=== PATIENT | female | born 1960 | race Caucasian/White ===

== ENCOUNTER 2016-09-08 10:43 | Day surgery (SDC) | payer OTHER ==
[2016-09-08] VITALS (19 sets, daily range): BP systolic 101–140; BP diastolic 57–69; PULSE 65–83; RESP 12–16; TEMP 96.9–98; O2SAT 92–100; Ht 162.6 cm; Wt 75.2 kg
[~2016-09-08] VITALS: Ht 162.6 cm; Wt 75.2 kg
[~2016-09-08 10:43] MED LIST: CEFAZOLIN 1 GRAM INJECTION IV ONE; CHOL100018 PO; CYCL-375 PO; ESTR0.9T2 PO; FAMO20TA32 PO; LIDOCAINE 1% (10mg/ml) 2ml SDV INJ ONE; LR 1,000 ML IV PRN; OMEG500C7 PO; OMEP20TA11 PO; PHENAZOPYRIDINE 95 MG TABLET PO ONE; POLY17PO6 PO; PREMARIN PO; [UNRECOGNIZED DRUG - OTHER]
[2016-09-08] MEDS ORDERED: BUPIVACAINE 0.25% (2.5mg/ml) INJ 30ml SDV ONE (11:18)
[2016-09-08] MEDS ORDERED: BUPIVACAINE 0.25%/EPI 1:200,000 30ml SDV ONE (11:18)
[2016-09-08] MEDS ORDERED: ESTR1.25 PO (11:20)
[2016-09-08] MEDS ORDERED: LIDOCAINE JELLY 2% 20ml UROJET MM ONE (11:22)
[2016-09-08] MEDS ORDERED: BIOT10004 PO (11:24)
--- NOTE | 2016-09-08 11:27 | ANESPREOP ---
Anesthesia Record Date and Time DATE: 09/08/16 TIME: 11:26 Proposed Surgical Procedure ROBOTIC LAPAROSCOPIC SACROCOLPOPEXY NPO since: mn Allergies: Coded Allergies: latex (Verified Allergy, Intermediate, RASH, 09/08/16) rash on hands from gloves Sulfa (Sulfonamide Antibiotics) (Verified Allergy, Unknown, YEAST, 09/08/16 ) Ht/Wt/BMI Height: 5 ' 4.00 " Weight: 73.000 kg BMI: 27.6 kg/m2 Medications Inpatient Medications Current Medications Medications (Trade) Dose Ordered Sig/Anna Start Time Stop Time Status Last Admin Dose Admin Lactated Ringer's (Lactated Ringers) 1,000 ml @ 50 mls/hr Q20H PRN 09/08/16 07:00 Biotin (Biotin) 1,000 Mcg Tab.chew, 1 TAB PO DAILY, (Reported) Last Taken: on 09/06/161999 Cholecalciferol (Vitamin D3) 1,000 Unit Tablet , 1,000 UNIT PO QID, (Reported) Last Taken: on 09/06/16 Cyclobenzaprine HCl (Cyclobenzaprine HCl) 10 Mg Tablet, 1 TAB PO HS, (Reported) Last Taken: on 09/07/16 2200 Estrogens,Conjugated (Premarin) 1.25 Mg Tablet , 0.5 TAB PO DAILY, (Reported) Last Taken: on 09/06/16 0400 [place]-3 Fatty Acids (Fish Oil) 500 Mg Capsule, 500 MG PO BID, (Reported) Last Taken: on 09/06/161999 Polyethylene Glycol 3350 (Miralax) 17 Gm Powd.pack, 17 G PO DAILY, (Reported) Take 17 Grams (1 capful), by mouth, once a day. Last Taken: on 09/08/16 0800 [Vibyrd] , DAILY, (Reported) Currently on Beta Delisa: No Medical/Surgical History Anesthesia PMH: Reports: Other (history of ulcer), Reflux (HX OF PER PAST ADMIT ) Smoking Status: Never smoker Use Chewing Tobacco?: No Second Hand Exposure: No Substance Use Type: does not use Alcohol Intake: none Past Surgical History Orthopedic Surgeries: No Abdominal Surgeries: No Genitourinary Surgeries: No Cardiac Surgeries: No Endocrine Surgeries: No Reproductive Surgeries: Yes - C SECTION; HYSTERECTOMY Neurological Surgeries: No Ear Surgeries: No Nose Surgeries: No Throat Surgeries: Yes - TONSILLECTOMY Other Surgeries: Yes - EGD; COLONOSCOPY,WISDOM TEETH PER H&P Anesthesia Adverse Reactions: FOUND none Family Hx of Anesthesia Advers: none Hx of Motion Sickness: No Physical Exam Respiratory: Bilat breath sounds equal, Lungs clear Cardiovascular: FOUND Regular rate, rhythm Airway Assessment Mallampati Score: II TMD: 3 Fingerbreadths Neck Extension: Good Overall Assessment: No Airway Concerns ASA: 2 Plan Anesthesia Plan: GETA Discussion Discussed risks including blindness and peripheral nerve injury/options/ alternatives of anesthesia and questions answered. Patient consents. Nursing pain assessment noted. Attestation Statement Prior to the delivery of any anesthetic medication, I examined the patient, developed the plan, obtained the patient's consent and discussed the risk and benefits of the procedure with the patient/guardian. MARTIN WHITFIELD CRNA Sep 08, 2016 11:27
[2016-09-08 11:28] LABS: BASOPHILS # (AUTO) 0.1 T/MM3 (0-0.2); BASOPHILS % (AUTO) 1.1 % (0-2); EOSINOPHILS # (AUTO) 0.2 T/MM3 (0-0.5); EOSINOPHILS % (AUTO) 3.1 % (0-4); HCT - HEMATOCRIT 40.4 % (36-46); HGB - HEMOGLOBIN 13.3 GM/DL (12-16); IMMATURE GRANULOCYTE # (AUTO) 0.01 T/MM3 (0.00-0.03); IMMATURE GRANULOCYTE % (AUTO) 0.2 % (0.0-0.5); LYMPHOCYTES # (AUTO) 2.8 T/MM3 (1-4.8); MEAN CORPUSCULAR HGB 29.9 UUG (26-34); MEAN CORPUSCULAR HGB CONC(MCHC 32.9 GM/DL (31-37); MEAN CORPUSCULAR VOLUME 90.8 UM3 (80-100); MEAN PLATELET VOLUME 9.1 UM3 (9.4-12.4); MONOCYTES # (AUTO) 0.4 T/MM3 (0-0.8); MONOCYTES % (AUTO) 6.8 % (0-9.0); NEUTROPHILS #(AUTO)-ABSOLUTE 2.7 T/MM3 (1.8-7.7); NEUTROPHILS % (AUTO) 42.8 % (33-66); RED BLOOD COUNT 4.45 M/MM3 (4.00-5.20); WBC - WHITE BLOOD COUNT 6.2 T/MM3 (4.5-11.0)
[2016-09-08 11:36] LABS: ANION GAP 11 MEQ/L (5-15); BUN/CREATININE RATIO 16 RATIO (6-26); CALCIUM 9.2 MG/DL (8.4-10.2); CHLORIDE 106 MEQ/L (98-107); CO2 - CARBON DIOXIDE 28 MEQ/L (22-30); CREATININE 0.8 MG/DL (0.7-1.2); GLOMERULAR FILTRATION RATE 74; GLUCOSE 95 MG/DL (65-110); POTASSIUM 3.9 MEQ/L (3.6-5); SODIUM 145 MEQ/L (134-144)
[2016-09-08] MEDS ORDERED: SALINE FLUSH 10ml SYRINGE ONE ×2 (12:01→14:45)
[2016-09-08] MEDS ORDERED: VECURONIUM 10mg/10ml INJECTION IV ONE (12:01)
[2016-09-08] MEDS ORDERED: PROPOFOL 200mg 20 ML IV ONE (12:01)
[2016-09-08] MEDS ORDERED: FENTANYL 250mcg/5ml INJECTION ONE ×2 (12:01→12:08)
[2016-09-08] MEDS ORDERED: LIDOCAINE (2%) 100 MG/5 ML PF SYRINGE IV ONE (12:01)
[2016-09-08] MEDS ORDERED: DEXAMETHASONE 4mg/ml - 1ml INJECTION ONE (12:06)
[2016-09-08] MEDS ORDERED: LACRI-LUBE EYE OINT 3.5 G TUBE ONE (12:10)
[2016-09-08] MEDS ORDERED: SUGAMMADEX 200 MG/2 ML INJECTION IV ONE (14:57)
[2016-09-08] MEDS ORDERED: HYDROMORPHONE 2mg/ml INJECTION ONE (14:58)
[2016-09-08] MEDS ORDERED: ONDANSETRON 4mg/2ml INJECTION ONE (14:58)
[2016-09-08] MEDS ORDERED: MORPHINE SULFATE 4 MG SYRINGE IV PRN (16:00)
[2016-09-08] MEDS ORDERED: IBUPROFEN 200 MG TABLET PO PRN (16:00)
[2016-09-08] MEDS ORDERED: METOCLOPRAMIDE 10mg/2ml INJECTION IV PRN (16:00)
[2016-09-08] MEDS ORDERED: KETOROLAC 15mg/ml INJECTION IV PRN (16:00)
[2016-09-08] MEDS ORDERED: ONDANSETRON 4mg/2ml INJECTION IV PRN (16:00)
--- NOTE | 2016-09-08 16:01 | GYNOPNOTE1 ---
INTAKE COUNSELOR Postoperative Note Date of Operation: 09/08/16 Preoperative Dx Comments POST- HYST VAG VAULT PROLAPSE Postoperative Diagnosis: Same as Preoperative Procedure: Posterior Colporrhaphy, Cystoscopy, Robotic Sacrocolpopexy Surgeon: Jeffry Griffin Anesthesia Provider: Aravind Barbosa CRNA Anesthesia Type: general Estimated Blood Loss: 75 JEFFRY GRIFFIN MD Sep 08, 2016 16:01
--- NOTE | 2016-09-08 16:06 | ANESPO ---
Post-Op Note Date 09/08/16 Time: 16:06 Status Pt Participated in Evaluation: Pt participated in person Vital Signs Date Time Temp Pulse Resp B/P Pulse Ox O2 Delivery O2 Flow Rate FiO2 09/08/16 15:40 96.9 73 12 108/60 98 Room Air Respiratory Function: Airway patent, Regular respirations Cardiovascular Function: Regular pulse Mental Status: Alert/oriented Pain Level Intensity: 0 Hydration: Taking po fluids Complications during Recovery None apparent Follow-Up Instructions Instructions Per Surgeon MARISOL SANTIAGO CRNA Sep 08, 2016 16:06
--- NOTE | 2016-09-08 16:19 | NUR ---
ARRIVAL PT TO ROOM 113 PER CART. PT TRANSFERRED SELF FROM CART TO BED. AT TIME OF TRANSFER, DILLON TUBING TO BAG BECAME DISCONNECTED. NEW BAG PLACED. DILLON PATENT AND DRAINING. PT DENIES PAIN, NAUSEA, OR SOA AT THIS TIME. VS TO BE ASSESSED. PT ORIENTED TO ROOM AND BED. BED ALARM ON. CALL LIGHT WITHIN REACH. WILL CONTINUE TO MONITOR.
[2016-09-08] MEDS: LR 1,000 ML IV SCH ×2 (17:07→23:52)
[2016-09-08] MEDS: HYDROCODONE/APAP 5 mg/325 mg TABLET PO PRN ×2 (17:28→23:36)
--- NOTE | 2016-09-08 17:28 | NUR ---
PAIN AFTER ROUNDING, PT STATED THAT PAIN IN ABD WAS A 5/10. PRN NORCO 5 GIVEN DOCUMENTED. PT GIVEN JELLO. DENIES NAUSEA OR SOA. BED ALARM ON. CALL LIGHT WITHIN REACH. WILL CONTINUE TO MONITOR.
[2016-09-09 04:23] VITALS: BP 106/58; PULSE 75; RESP 14; TEMP 96.8; O2SAT 97
--- NOTE | 2016-09-09 07:08 | NUR ---
SHIFT SUMMARY PT ALERT AND ORIENTED X3, VITAL SIGNS ARE STABLE ON ROOM AIR. DENIES C/P,N/V AND SOA. PT AMBULATED TWICE ON THIS SHIFT. PT HAS REQUIRED ONE DOSE OF PO PRN PAIN MEDICATION. WILL CONTINUE TO MONITOR.
[2016-09-09 07:12] VITALS: BP 108/54; PULSE 73; RESP 16; TEMP 97.6; O2SAT 99
--- NOTE | 2016-09-09 07:50 | NUR ---
VOIDING TRIAL VOIDING TRIAL PERFORMED PER DR. GRACE'S ORDERS AT THIS TIME. PT IMMEDIATELY ATTEMPTED TO VOID AFTER INSTILLATION OF 300CC OF STERILE NS AND CATHETER DC. PT VOIDED 300CC AT THIS TIME IN THE BATHROOM. PT PERFORMED A BATH AND SHAINA CARE AT THIS TIME. PT ASSISTED TO CHAIR AFTER VOIDING TRIAL FOR BREAKFAST. NO REPORTS OF DISCOMFORT OR PAIN DURING THIS VOIDING TRIAL. WILL CONTINUE TO MONITOR URINARY OUTPUT THROUGHOUT SHIFT. PT ENCOURAGED TO WALK HALLS AFTER BREAKFAST. WILL CONTINUE TO MONITOR CLOSELY.
[2016-09-09] MEDS: LR 1,000 ML IV SCH (07:52)
[2016-09-09 07:56] VITALS: PULSE 73; RESP 16
[2016-09-09] MEDS: HYDROCODONE/APAP 5 mg/325 mg TABLET PO PRN (08:05)
[2016-09-09] MEDS ORDERED: HYDR-4246 PO (08:46)
[2016-09-09] MEDS ORDERED: IBUP-1724 PO (08:46)
[2016-09-09] MEDS ORDERED: ENOXAPARIN 40 MG/0.4 ML INJECTION SQ SCH (09:00)
--- NOTE | 2016-09-09 09:44 | OPNOTEF ---
DATE OF SURGERY 09/08/2016 PREOPERATIVE DIAGNOSES 1. Symptomatic stage III posthysterectomy vaginal prolapse. 2. Old obstetrical laceration with posterior scar. POSTOPERATIVE DIAGNOSES 1. Symptomatic stage III posthysterectomy vaginal prolapse. 2. Old obstetrical laceration with posterior scar. PROCEDURES PERFORMED 1. Robotic laparoscopic sacrocolpopexy. 2. Posterior colporrhaphy. 3. Cystourethroscopy. SURGEON Eitan Griffin MD ESTIMATED BLOOD LOSS 75 mL. ANESTHESIA General. IMPLANTS Coloplast Restorelle Y mesh. INDICATIONS A 56-year-old woman with history of MILLY/BSO in 2004 for nonprolapse indications presents for protrusion of the vagina outside the hymenal ring significantly. The intraoperative examination was more notable for prolapse than on the office evaluation with predominantly an apical anterior prolapse with the apex produced more than 5 cm beyond the hymenal ring. She had actually overall good vaginal wall thickness, and there was well-rugated epithelium. At the conclusion of the procedure, the bladder and urethra were normal and there were bilateral urine jets produced. A transrectal exam was completed as needed during the posterior repair and at the conclusion of the operation. DESCRIPTION OF PROCEDURE General anesthesia was administered, and the patient was prepped and draped in the low lithotomy position in the Jorden stirrups with sequential compression devices and appropriate padding as is typical for da Nagi-assisted operative laparoscopic pelvic surgery. She received prophylactic antibiotics. A preoperative checklist was completed. The examination under anesthesia was completed. The findings noted. Marking Allis clamps were placed on the vaginal wall anteriorly and posteriorly for future identified for graft attachment. The vagina was stented by the court assistant with a large EEA sizer or a Anatoliy retractor for dissection and graft application. A transurethral Prasad was placed to continuous drainage. The abdomen was approached sterilely. An intraumbilical incision was made. A Veress needle did not pass easily. We passed the Veress needle through a stab incision at the palmar point in the left upper quadrant and had appropriate pressures at which point CO2 could be insufflated. The umbilical 12-mm port was then placed and secured. The video laparoscope was introduced. The two lateral 8-mm da Nagi ports were placed 10 to 12 cm off of midline just below the level of the umbilicus in the usual manner under direct vision. The court assistant port was placed in the left upper quadrant as was a 12-mm AirSeal port, which was then attached to the CO2 AirSeal system. The bowel was cleared from the pelvis with atraumatic forceps. A systematic survey was taken of the pelvis and upper abdomen noting a few filmy adhesions of the sigmoid colon over the top of the bladder. The sigmoid colon was autoretracted by adhesions to the left upper quadrant, and these were not freed. Sacropromontory was easily visualized. The da Nagi was side docked. The console was approached using monopolar merritt and fenestrated bipolar forceps. The retroperitoneal dissection was then made to open the peritoneum over the sacrum noting the position of the right common iliac artery and crossing of the right ureter as well as identifying the edge of the left common iliac vein. The anterior longitudinal ligament was cleared below the iliac vein and the middle sacral vessels were skeletonized and coagulated to clear the lower L5-S1 disc space anterior longitudinal ligament for future graft attachment. The peritoneum adjacent to the sigmoid colon on the right side was then opened down to the pelvic floor to develop the rectovaginal plane and then develop the vesicovaginal plane anteriorly. The Coloplast Restorelle Y mesh was then attached with the anterior arm measuring 4.5 x 6 cm, the posterior arm 4.5 x 8 cm. The posterior side was attached first with nine attachment points of interrupted 2-0 PDS. The anterior side was attached with eight 2-0 PDS sutures as well. The vagina was then stented up to stage the tail over the sacrum. This was taken off of tension slightly and secured to the lower L5-S1 anterior longitudinal ligament with two sutures of CV-0 [place]-Fabricio, and the excess mesh was trimmed. The graft was retroperitonealized with a running 2-0 V-Loc suture. This field was irrigated and suctioned, and it was found to be hemostatic. The da Nagi was then undocked and the patient taken out of Trendelenburg for cystoscopy. Cystourethroscopy was completed using a 21-Macanese sheath and 70-degree telescope with water as a distention medium noting bilateral urine jets and no bladder trauma or urethral trauma with systematic inspection. The Prasad catheter was replaced. We then returned sterilely to the abdominal wall to close the port sites at the skin after removing all instruments and expressing the gas. Then, 4-0 Monocryl was used on the skin as well as Dermabond. We returned to the transvaginal approach in the high lithotomy position to correct the posterior obstetrical scarring and cleft that remained from old laceration and performed a distal colporrhaphy by using Allis clamps infiltrated with Marcaine epinephrine, incising the old midline scar with Metzenbaum scissors, and then undermining the vaginal wall and dividing it posteriorly to mobilize the rectum away from the vaginal wall and then mobilize the rectovaginal septal connective tissue as well laterally. The rectal wall was plicated with a couple of 2-0 Vicryl sutures. The rectovaginal septal connective tissue was plicated with several interrupted 2-0 Vicryl sutures. Excess vaginal wall was trimmed, and the vagina was closed with interrupted [id number] 2-0 Vicryl sutures and 3-0 Vicryl sutures down to over the peroneal body which was also reinforced with interrupted Anatoliy sutures of 2-0 Vicryl. Good support to the vagina was noted. A transrectal exam was negative. Good hemostasis was found, and the patient was awakened and taken to the PACU in good condition. JULIO
--- NOTE | 2016-09-09 11:05 | NUR ---
CM CM IN TO VISIT WITH PT. SHE IS ALERT AND ORIENTED. SHE PLANS TO DC HOME. SHE DENIES DC NEEDS. LACE SCORE IS 1. SHE IS GIVEN CM CONTACT INFORMATION. Addendum: 09/09/16 at 1105 by VERONICA BO RN Amended: Links added.
[2016-09-09 11:15] VITALS: BP 103/60; PULSE 80; RESP 16; TEMP 96.6; O2SAT 100
== END 2016-09-09 11:50 | disposition home or self-care (01) ==
LOC: SCU 10:43 → SRG 10:44 → SCU 09-09 11:50
PROVIDERS: ATTEND Obstetrics & Gynecology Gynecology
DX: N99.3 Prolapse of vaginal vault after hysterectomy (principal); Z88.2 Allergy status to sulfonamides; Z88.6 Allergy status to analgesic agent; Z91.040 Latex allergy status; Z90.710 Acquired absence of both cervix and uterus
CPT/HCPCS: 36415; 57425; 80048; 85025; C1763; J0690; J1100; J1170; J1650; J2405; J2704; J3010; J7120; S2900

== ENCOUNTER 2016-09-12 02:25 | Inpatient (IN) | payer OTHER ==
[~2016-09-12] VITALS: Ht 162.6 cm; Wt 74.5 kg
[~2016-09-12 02:25] MED LIST changes: +BIOT10004 PO; -CEFAZOLIN 1 GRAM INJECTION IV ONE; -ESTR0.9T2 PO; +ESTR1.25 PO; -FAMO20TA32 PO; +HYDR-4246 PO; +IBUP-1724 PO; -LIDOCAINE 1% (10mg/ml) 2ml SDV INJ ONE; -LR 1,000 ML IV PRN; -OMEP20TA11 PO; -PHENAZOPYRIDINE 95 MG TABLET PO ONE; -PREMARIN PO; -[UNRECOGNIZED DRUG - OTHER]
--- OUTSIDE RECORDS SUMMARY | 2016-09-12 02:29 | XMS REPORT | Continuity of Care Document ---
Author Author [facility] Organization [facility] Address Unknown Phone Unavailable Support Name Relationship Address Phone DANIEL ANDERSON MD Caregiver [address] [place] [address] Unavailable JEFFRY GRACE MD Caregiver [address] [address] Unavailable JAYDEN ATKINS Next Of Kin [address] [phone] Insurance Providers Guarantor Makeda Atkins Address [address] [place] [address] CP Email [email or web address] Payer Benefit [employer] Policy Number [id number] Subscriber's Name WilbertJayden Relationship 01 Spouse Group Number [id number] Advance Directives Directive Response Recorded Date/Time Ordered Resuscitation Status Full Code, unverified 09/07/16 12:29pm Resuscitation Documents on File No 09/08/16 11:00am DPOA for Healthcare Only Yes 09/08/16 11:00am Living Will Yes 09/08/16 11:00am Problems No problem information available. Medications Current Home Medications Medication Dose Units Route Directions Days Qty Instructions Start Date Biotin 1,000 Mcg Tab.chew 1 Tab Oral Daily 09/08/16 Cholecalciferol (Vitamin D3) 1,000 Unit Tablet 1,000 Unit Oral Four Times Daily 01/23/12 Cyclobenzaprine Hcl 10 Mg Tablet 1 Tab Oral Bedtime 09/07/16 Estrogens,Conjugated (Premarin) 1.25 Mg Tablet 0.5 Tab Oral Daily 09/08/16 Hydrocodone/Acetaminophen ([place] 5-325 Tablet) 5-325 Tablet 1-2 Tab Oral Every 4 Hours as needed for Pain 30 Tablet 09/09/16 Ibuprofen 200 Mg Tablet 600 Mg Oral Every 6 Hours as needed for Pain 40 Tablet 09/09/16 [place]-3 Fatty Acids (Fish Oil) 500 Mg Capsule 500 Mg Oral Twice A Day 01/23/12 Polyethylene Glycol 3350 (Miralax) 17 Gm Powd.pack 17 G Oral Daily Take 17 Grams (1 capful), by mouth, once a day. 09/07/16 Past Home Medications Medication Directions Ordered Status Multivitamins (Multi-Day Vitamin) 1 Tab Tablet, 1 Tab Oral Daily 11/16/10 Discontinued Social History Social History Problem Response Recorded Date/Time Onset Date Status Reason for Hospitalization Laparscopic Colpopexy 09/09/2016 10:49am Not Applicable Not Applicable Chewing Tobacco Status No 05/22/2012 9:39am Not Applicable Not Applicable Hx Substance Use No 05/22/2012 9:39am Not Applicable Not Applicable Hx Alcohol Use Y 2-3X MO-PER PAST ADMIT 09/08/2016 11:20am Not Applicable Not Applicable Has the pt used tobacco in the last 12 months No 09/08/2016 11:20am Not Applicable Not Applicable Query Response Start Date Stop Date Smoking Status Never smoker Hospital Discharge Instructions Instructions: Care Instructions: I was in the hospital because (patient own words): tying up my bladder Discharge Diet: Regular Discharge Activity: as instructed Follow Up Appointments: as scheduled, sooner prn Pending Lab / Results: No Pending Lab Expected Signs/Symptoms: as reviewed Notify Physician If: any concerns Temp > 100.5 During Business Hours:: Please call the physician's office at [phone] After Business Hours:: Please call [phone] and have the clarifier operator page the physician. Pain Management/Treatment: RXs provided Pain Scale Utilized to Educate Patient: 0-10 Pain Scale Wound/Incision Care: as reviewed Condition at time of discharge: Good Plan of Care Discharge Date 09/09/16 11:50am Instructions/Education Provided PANTERA Grace Postoperative Instructions Cystoscopy (DC) Prescriptions See Medication Section Functional Status Query Response Date Recorded Mobility Status Ambulatory September 08, 2016 4:28pm Assistive Devices None September 08, 2016 4:28pm Activity Limitations Fatigue Pain September 08, 2016 4:28pm Feeding Ability Independent September 08, 2016 4:28pm Toileting Ability Independent September 08, 2016 4:28pm Grooming Ability Independent September 08, 2016 4:28pm Dressing Ability Independent September 08, 2016 4:28pm Driving Ability Independent September 08, 2016 4:28pm Housework Ability Independent September 08, 2016 4:28pm Meal Preparation Ability Independent September 08, 2016 4:28pm Stair Climbing Ability Independent September 08, 2016 4:28pm Ability to complete ADL's impeded by No change September 08, 2016 4:28pm Cognitive/Perceptual Impairments Impaired vision September 08, 2016 4:28pm Visual Assistive Devices Glasses September 08, 2016 4:28pm Allergies, Adverse Reactions, Alerts Allergen Type Severity Reaction Status Last Updated Sulfa (Sulfonamide Antibiotics) Allergy Unknown YEAST Active 09/08/16 Latex Allergy Intermediate RASH Active 09/08/16 Immunizations Query Response on File Recorded Date/Time Hx Influenza Vaccination N fall 201509/08/16 11:20am Hx Pneumococcal Vaccination No 09/08/16 11:20am Hx Tetanus, Diptheria, Pertussis N NEEDS TO BE UPDATED 10/22/11 7:25pm Hx Influenza Vaccination N fall 201509/08/16 11:20am Hx Tetanus, Diptheria, Pertussis N NEEDS TO BE UPDATED 10/22/11 7:25pm Influenza Vaccine Hx fall 201509/09/16 7:49am Vital Signs Acute Vital Signs Vital Response Date/Time Temperature (Fahrenheit) 96.6 deg F (96.8 - 99.1) 09/09/2016 11:15am Temperature (Calculated Celsius) 35.79040 degrees C (36.0 - 37.3) 09/09/2016 11:15am Temperature Source Oral 09/09/2016 11:15am Pulse Rate (adult) 80 bpm (60 - 100) 09/09/2016 11:15am Respiratory Rate 16 breaths/min (10 - 20) 09/09/2016 11:15am O2 Sat by Pulse Oximetry 100 % (90 - 100) 09/09/2016 11:15am Oxygen Delivery Method Room Air 09/09/2016 11:15am Oxygen Delivery Method Room Air 09/08/2016 4:15pm Blood Pressure 103/60 mm Hg 09/09/2016 11:15am Blood Pressure Source Automatic Cuff 09/09/2016 11:15am Height (Feet) 5 feet 09/08/2016 10:55am Height (Inches) 4.00 inches 09/08/2016 10:55am Weight (Kilograms) 75.200 kg 09/09/2016 7:12am Body Mass Index (BMI) 27.6 09/08/2016 10:55am Results Laboratory Results Test Name Result Units Flags Reference Collection Date/Time Result Date/ Time Comments White Blood Count 6.2 T/MM3 4.5-11.0 09/08/2016 11:1509/08/2016 11: 28am Red Blood Count 4.45 M/MM3 4.00-5.20 09/08/2016 11:1509/08/2016 11: 28am Hemoglobin 13.3 GM/DL 12-16 09/08/2016 11:1509/08/2016 11:28am Hematocrit 40.4 % 36-46 09/08/2016 11:09/08/2016 11:28am Mean Corpuscular Volume 90.8 UM3 80-100 09/08/2016 11:1509/08/2016 11:28am Mean Corpuscular Hemoglobin 29.9 UUG 26-34 09/08/2016 11:2016 11:28am Mean Corpuscular Hemoglobin Concent 32.9 GM/DL 31-37 09/08/2016 11:09/08/2016 11:28am RDW Standard Deviation 42.4 FL 36.9-50.2 09/08/2016 11:1509/08/2016 11:28am Platelet Count 301 T/MM3 130-400 09/08/2016 11:1509/08/2016 11:28am Mean Platelet Volume 9.1 UM3 L 9.4-12.4 09/08/2016 11:09/08/2016 11 :28am Neutrophils (%) (Auto) 42.8 % 33-66 09/08/2016 11:09/08/2016 11: 28am Lymphocytes (%) (Auto) 46.0 % H 23-45 09/08/2016 11:1509/08/2016 11: 28am Monocytes (%) (Auto) 6.8 % 0-9.0 09/08/2016 11:09/08/2016 11:28am Eosinophils (%) (Auto) 3.1 % 0-4 09/08/2016 11:09/08/2016 11:28am Basophils (%) (Auto) 1.1 % 0-2 09/08/2016 11:15am 09/08/2016 11:28am Immature Granulocyte % (Auto) 0.2 % 0.0-0.5 09/08/2016 11:152016 11:28am Absolute Neutrophils (auto) 2.7 T/MM3 1.8-7.7 09/08/2016 11:2016 11:28am Absolute Lymphocytes (auto) 2.8 T/MM3 1-4.8 09/08/2016 11:2016 11:28am Absolute Monocytes (auto) 0.4 T/MM3 0-0.8 09/08/2016 11:2016 11:28am Absolute Eosinophils (auto) 0.2 T/MM3 0-0.5 09/08/2016 11:2016 11:28am Absolute Basophils (auto) 0.1 T/MM3 0-0.2 09/08/2016 11:2016 11:28am Absolute Immature Granulocyte (auto 0.01 T/MM3 0.00-0.03 09/08/2016 11: 09/08/2016 11:28am Icterus Index < 2 0-7 09/08/2016 11:09/08/2016 11:36am Chemistry Specimen Hemolysis < 15 0-25 09/08/2016 11:09/08/2016 11:36am 0-25: Specimen Exhibited No Hemolysis. Turbidity < 20 0-20 09/08/2016 11:09/08/2016 11:36am Sodium Level 145 MEQ/L H 134-144 09/08/2016 11:09/08/2016 11:36am Potassium Level 3.9 MEQ/L 3.6-5 09/08/2016 11:09/08/2016 11:36am Chloride Level 106 MEQ/L 98-107 09/08/2016 11:09/08/2016 11:36am Carbon Dioxide Level 28 MEQ/L 22-30 09/08/2016 11:09/08/2016 11: 36am Anion Gap 11 MEQ/L 5-15 09/08/2016 11:09/08/2016 11:36am Blood Urea Nitrogen 13.0 MG/DL 7-17 09/08/2016 11:1509/08/2016 11: 36am Creatinine 0.8 MG/DL 0.7-1.2 09/08/2016 11:09/08/2016 11:36am BUN/Creatinine Ratio 16 RATIO 6-26 09/08/2016 11:15am 09/08/2016 11: 36am Glomerular Filtration Rate Calc 74 09/08/2016 11:15am 09/08/2016 11 :36am Glucose Level 95 MG/DL 65-110 09/08/2016 11:15am 09/08/2016 11:36am Calculated Osmolality 279 MOSM/KG 261-280 09/08/2016 11:15am 2016 11:36am Calcium Level 9.2 MG/DL 8.4-10.2 09/08/2016 11:15am 09/08/2016 11:36am Procedures Procedure Status Date Provider(s) Robot-assisted sacrocolpopexy Completed 09/08/16 JEFFRY GRACE MD Encounters Encounter Location Arrival/Admit Date Discharge/Depart Date Attending Provider Departed [facility] 09/08/16 10:43am 09/09/16 11:50am JEFFRY GRACE MD
--- NOTE | 2016-09-12 02:30 | NUR ---
PROVIDER DR SHOEMAKER IN ROOM W/ PT.
--- NOTE | 2016-09-12 02:58 | ERPDOC ---
Departure Disposition Decision Date: Sep 12, 2016 Disposition Decision Time: 05:25 Disposition: 02 TO [facility] Impression Impression Impression: Primary Impression: Small bowel obstruction Severity: Severe Condition: Improved Seen By: Physician only Referrals: DANIEL GASTELUM MD (Family) Problems/Meds/Labs Reviewed?: Yes Medications reviewed and manag: Yes Follow up care ordered?: Yes Mental Status: Alert HPI - Back Pain General Chief Complaint: Low Back Pain or Injury Stated Complaint: LOWER BACK PAIN Time Seen by Provider: 02:30 Source: patient Exam Limitations: no limitations HPI - Back Pain Initial Comments Pt had Laproscopic Sacrocolpopexy four days ago. She spent one night in the hospital and went home Sunday. When she went home, she tried to lay flat, and experienced significant left lower back pain with left flank pain. Sleeping on the couch, sleeping sideway she was able to find a position of comfort. However Sunday the patient began having significant left low back pain with left flank pain that has been constant, intense, aching, and the patient describes 10 out of 10 pain. Patient has been using Drury at home, but has not had adequate pain relief for the past 2 days. Occurred At: home Onset/Timing: Rapid Severity/Quality: severe Location: lumbar spine 1 - Severe pain with mild to moderate tenderness in the CVA Associated Sypmtoms: DENIES: fever, loss of bladder control, loss of bowel control, lower back pain, muscle spasms, numbness in legs/feet, sensory/motor loss, tingling in legs/feet, weakness Hx of Similar Symptoms: No Allergies: Coded Allergies: latex (Verified Allergy, Intermediate, RASH, 09/08/16) rash on hands from gloves Sulfa (Sulfonamide Antibiotics) (Verified Allergy, Unknown, YEAST, 09/08/16 ) Past History Past Medical History Female: UTI, pyelonephritis Surgical History General: tonsils Reproductive/: hysterectomy Surgical History Comments Laparoscopic Sacrocolpopexy Vaccines Hx Influenza Vaccination: No (Fall 2015) Hx Pneumococcal Vaccination: No Hx Tetanus, Diptheria, Pertuss: No (NEEDS TO BE UPDATED) Social History Smoking Status: Never smoker Does patient use chewing tobac: No Second Hand Exposure: No Substance Use Type: does not use Record Review Pertinent history updated: Yes Review of Systems Constitutional Constitutional: DENIES: appetite decrease, appetite increase, chills, dizziness , fever, weakness ENMT Ears: DENIES: pain Hearing: DENIES: hearing loss, tinnitus Balance: DENIES: vertigo Mouth/Throat: DENIES: change in swallowing, change in voice, hoarsness, painful swallowing, sore throat Cardiovascular Cardiac: DENIES: chest pain, dyspnea on exertion Rhythm/Rate: DENIES: irregular beat, palpitations, tachycardia Vascular: DENIES: pedal edema Pulmonary Respiratory: DENIES: cough, dyspnea, pleuritic chest pain GI Upper Abdomen: DENIES: dysphagia, heartburn/indigestion, nausea, pain, vomiting Lower Abdomen: DENIES: blood in stool, constipation, diarrhea, pain General: DENIES: burning, dysuria, frequency, pain, urgency Musculoskeletal General: pain, tenderness, DENIES: atrophy of muscles, cramps, joint pain, joint swelling, weakness Integumentary Skin: DENIES: rash, sores Neurological General: DENIES: headache, numbness, tingling, vertigo, weakness Psychiatric Psychiatric: DENIES: anxiety, depression, nervousness Physical Exam General General Nourishment: well nourished, well developed, appears stated age General Body Habitus: well groomed Vitals and Pain First Documented Vital Signs Date Time Temp Pulse Resp B/P Pulse Ox O2 Delivery O2 Flow Rate FiO2 09/12/16 03:29 20 09/12/16 03:36 98.6 79 118/67 98 Room Air Weight: Kilograms: Height (feet): 5 Height (inches): 4.00 Triage Pain Scale: RN VS reviewed by Provider: Yes Normal Exams: Head: Normocephalic w/o trauma Eyes: Pupils are PERRLA w/ EOMI, No scleral icterus, irritation, or foreign bodies noted ENMT: No facial trauma, nasal exudates, pharyngeal erythema, or exudates are noted Neck: Full range of motion, without adenopathy, JVD, bruits or thyromegaly Chest/Resp: Clear all bee, with good airflow, and symmetry bilaterally CV: Regular rate and rhythm, without murmur or gallop, Pulses 2+ all extremities, capillary refill, <2 seconds all ext., no pedal edema noted Lymphatic: No lymphadenopathy, or lymphedema noted Integumentary: No rashes, hives, or bruising noted, hair and nails, without abnormality Neurologic: Patient is alert, and oriented, cranial nerves, motor/sensory/ cerebellar, exams w/o gross deficits, to observation Psychiatric: Patient exhibits, appropriate attention, emotion and affect Abdomen (brief) Abdominal Brief: FOUND: bowel normo active x4, soft, tender (moderate left CVA tenderness, no guarding no rebounding), NOT FOUND: distended, hepatosplenomegaly Musculoskeletal (brief) Musculoskeletal Brief: FOUND: tenderness (left high lumbar tenderness, no spasms), NOT FOUND: deformity, loss of motion, spasm Progress Results/Orders Orders Procedure Category Date Status Time Iv Lock (Ed Only) EDM 09/12/16 Transmitted 02:53 Cbc W/Auto LAB 09/12/16 Complete Diff-Reflex Manual Cmp - Comprehensive LAB 09/12/16 Complete Metabolic Lipase LAB 09/12/16 Complete Ketorolac (Toradol) PHA 09/12/16 Complete 03:00 Metoclopramide PHA 09/12/16 Complete (Reglan Inj) 03:00 Fentanyl (Fentanyl) PHA 09/12/16 Complete 03:00 Normal Saline (Normal PHA 09/12/16 Complete Saline Iv) 03:00 UA, LAB 09/12/16 Complete Dip&Micro(Complete) & 03:13 Ct Renal W/O Contrast CT 09/12/16 Logged Lab Results Laboratory Tests Test 09/12/16 03:13 09/12/16 03:22 Urine Collection Type Cleancatch-midstream Urine Color Yellow Urine Turbidity Clear Urine pH 6.0 Urine Specific [place] 1.010 Urine Protein Negative Urine Glucose (UA) Negative Urine Ketones Negative Urine Blood 2+ Urine Nitrite Negative Urine Bilirubin Negative Urine Urobilinogen 1.0EU/DL Urine Leukocyte Esterase Negative Urine RBC 3-5/HPF Urine WBC 1-3/HPF Urine Squamous Epithelial Cells 5-10 Urine Bacteria Trace Urine Culture Indicated Cult not indicated White Blood Count 11.6T/MM3 Red Blood Count 4.47M/MM3 Hemoglobin 13.2GM/DL Hematocrit 40.5% Mean Corpuscular Volume 90.6UM3 Mean Corpuscular Hemoglobin 29.5UUG Mean Corpuscular Hemoglobin Concent 32.6GM/DL RDW Standard Deviation 42.6FL Platelet Count 318T/MM3 Mean Platelet Volume 9.1UM3 Immature Granulocyte % (Auto) 0.1% Neutrophils (%) (Auto) 74.9% Lymphocytes (%) (Auto) 18.6% Monocytes (%) (Auto) 4.3% Eosinophils (%) (Auto) 1.8% Basophils (%) (Auto) 0.3% Absolute Immature Granulocyte (auto 0.01T/MM3 Absolute Neutrophils (auto) 8.7T/MM3 Absolute Lymphocytes (auto) 2.2T/MM3 Absolute Monocytes (auto) 0.5T/MM3 Absolute Eosinophils (auto) 0.2T/MM3 Absolute Basophils (auto) 0.0T/MM3 Turbidity < 20 Sodium Level 141MEQ/L Potassium Level 4.0MEQ/L Chloride Level 100MEQ/L Carbon Dioxide Level 28MEQ/L Anion Gap 13MEQ/L Blood Urea Nitrogen 7.0MG/DL Creatinine 0.6MG/DL Glomerular Filtration Rate Calc 104 BUN/Creatinine Ratio 12RATIO Glucose Level 131MG/DL Calculated Osmolality 271MOSM/KG Calcium Level 9.1MG/DL Total Bilirubin 0.70MG/DL Icterus Index < 2 Aspartate Amino Transf (AST/SGOT) 38U/L Alanine Aminotransferase (ALT/SGPT) 47U/L Alkaline Phosphatase 84U/L Total Protein 7.0G/DL Albumin 3.8G/DL Globulin 3.2G/DL Albumin/Globulin Ratio 1.2RATIO Lipase 29U/L Chemistry Specimen Hemolysis 36 Medications Current ED Medications Ketorolac Tromethamine (Toradol) 30 mg O ONCE IV Last administered on 03:34; Start 09/12/16 at 03:00; Stop 09/12/16 at 03:01; Status DC Metoclopramide HCl (REGLAN Inj) 10 mg O ONCE IV Last administered on 03:31; Start 09/12/16 at 03:00; Stop 09/12/16 at 03:01; Status DC Fentanyl 50 mcg 50 mcg O ONCE IV Last administered on 09/12/16 03:29; Start 09/12/16 at 03:00; Stop 09/12/16 at 03:01; Status DC Sodium Chloride (Normal Saline IV) 1,000 ml @ 0 mls/hr Q0M ONCE IV Last administered on 09/12/16 03:26; Start 09/12/16 at 03:00; Stop 09/12/16 at 03:01 ; Status DC Progress Progress Patient given 1 L normal saline IV fluid bolus, Toradol, Reglan, and fentanyl 50 g IV - To relief CBC - n CMP/L -n UA - moderate RBC/blood with Tr bacteria only CR renal - closed loop small bowel obstruction with questionable mesenteric ischemia Dr. Gastelum paged at [phone] [phone] - Case discussed with Dr. Gastelum - [id number] - we' ll admit the patient for observation on the surgical floor with surgical consultation this morning AKANKSHA SHOEMAKER MD Sep 12, 2016 02:58
[2016-09-12] MEDS ORDERED: NORMAL SALINE 1,000 ML IV ONE (03:00)
[2016-09-12] MEDS ORDERED: KETOROLAC 30mg/ml INJECTION IV ONE (03:00)
[2016-09-12] MEDS ORDERED: FENTANYL 100mcg/2ml INJECTION IV ONE (03:00)
[2016-09-12] MEDS ORDERED: METOCLOPRAMIDE 10mg/2ml INJECTION IV ONE (03:00)
[2016-09-12 03:28] LABS: BASOPHILS % (AUTO) 0.3 % (0-2); EOSINOPHILS # (AUTO) 0.2 T/MM3 (0-0.5); EOSINOPHILS % (AUTO) 1.8 % (0-4); HCT - HEMATOCRIT 40.5 % (36-46); HGB - HEMOGLOBIN 13.2 GM/DL (12-16); IMMATURE GRANULOCYTE # (AUTO) 0.01 T/MM3 (0.00-0.03); IMMATURE GRANULOCYTE % (AUTO) 0.1 % (0.0-0.5); LYMPHOCYTES # (AUTO) 2.2 T/MM3 (1-4.8); LYMPHOCYTES % (AUTO) 18.6 % (23-45); MEAN CORPUSCULAR HGB 29.5 UUG (26-34); MEAN CORPUSCULAR HGB CONC(MCHC 32.6 GM/DL (31-37); MEAN CORPUSCULAR VOLUME 90.6 UM3 (80-100); MEAN PLATELET VOLUME 9.1 UM3 (9.4-12.4); MONOCYTES # (AUTO) 0.5 T/MM3 (0-0.8); MONOCYTES % (AUTO) 4.3 % (0-9.0); NEUTROPHILS #(AUTO)-ABSOLUTE 8.7 T/MM3 (1.8-7.7); NEUTROPHILS % (AUTO) 74.9 % (33-66); RED BLOOD COUNT 4.47 M/MM3 (4.00-5.20); WBC - WHITE BLOOD COUNT 11.6 T/MM3 (4.5-11.0)
[2016-09-12 03:30] LABS: BLOOD, URINE 2+ (NEGATIVE); COLOR,URINE YELLOW (YELLOW); LEUKOCYTE ESTERASE ,URINE NEGATIVE (NEGATIVE); NITRITE,URINE NEGATIVE (NEGATIVE)
[2016-09-12 03:38] LABS: ALBUMIN 3.8 G/DL (3.5-5.0); ALBUMIN/GLOBULIN RATIO 1.2 RATIO (1.1-2.2); ALKALINE PHOSPHATASE 84 U/L (38-126); ALT (SGPT) 47 U/L (9-52); ANION GAP 13 MEQ/L (5-15); AST (SGOT) 38 U/L (14-36); BUN/CREATININE RATIO 12 RATIO (6-26); CALCIUM 9.1 MG/DL (8.4-10.2); CHLORIDE 100 MEQ/L (98-107); CO2 - CARBON DIOXIDE 28 MEQ/L (22-30); CREATININE 0.6 MG/DL (0.7-1.2); GLOMERULAR FILTRATION RATE 104; GLUCOSE 131 MG/DL (65-110); LIPASE 29 U/L (23-300); SODIUM 141 MEQ/L (134-144)
[2016-09-12] MEDS: HYDROMORPHONE 2mg/ml INJECTION IV PRN ×3 (03:40→16:23)
[2016-09-12 03:46] LABS: BACTERIA,URINE TRACE (NEGATIVE)
--- NOTE | 2016-09-12 04:15 | NUR ---
CT SCAN PT GONE TO CT SCAN.
--- NOTE | 2016-09-12 04:28 | NUR ---
CT SCAN PT BACK FROM CT SCAN
[2016-09-12] MEDS ORDERED: METOCLOPRAMIDE 10mg/2ml INJECTION IV PRN (05:30)
--- NOTE | 2016-09-12 06:05 | NUR ---
REPORT REPORT GIVEN TO [facility].
--- NOTE | 2016-09-12 06:06 | NUR ---
REPORT REPORT RECEIVED FROM SHAHIDA ANDERSON IN ER.
--- NOTE | 2016-09-12 06:10 | NUR ---
DEPART PT LEFT ER VIA WHEELCHAIR ALERT VS CHARTED IN NO ACUTE DISTRESS ADMIT TO SURGICAL OBSERVATION AND PT CARE XFERED TO [facility].
--- NOTE | 2016-09-12 06:10 | NUR ---
ADMIT PT ADMITTED TO ROOM 117 VIA W/C ACCOMPANIED BY STAFF AND . PT RATES PAIN 0/10. WILL CONTINUE TO MONITOR.
[2016-09-12 06:15] VITALS: Ht 162.6 cm; Wt 74.5 kg
[2016-09-12 06:16] VITALS: BP 127/69; PULSE 78; RESP 18; TEMP 97.6; O2SAT 99
--- NOTE | 2016-09-12 07:58 | DI ---
Indication: ITS.REASON: left cva tenderness with hematuria PROCEDURE: CT RENAL W/O CONTRAST: Encounter: Initial Comparison: None Technique: Axial CT images were performed through the abdomen and pelvis without intravenous contrast. Coronal and sagittal two-dimensional reformats. Automated Exposure Control and Iterative Reconstruction dose reducing techniques were utilized. Findings: The lung bases are clear. There is a large amount of free intraperitoneal air and air in the subcutaneous tissues of the abdomen and left rectus abdominis musculature. Gas is present within the nondependent portion of the bladder. Small amount of free pelvic fluid. Uterus is surgically absent. The unenhanced contours of the liver, gallbladder, spleen, pancreas and adrenal glands are normal. Right kidney appears normal. Left kidney appears normal. No renal or ureteral stones identified. Some borderline dilated fluid-filled small bowel loops in the left and central abdomen with an area of transition from larger caliber to small caliber distal small bowel seen on axial images 59-65. There is associated mesenteric edema. Bone windows show no acute findings. Impression: 1. Evidence of a high-grade partial or complete small bowel obstruction which could be due to adhesion or internal hernia in the right central abdomen. Surgical consultation is recommended. The preliminary report suggest that this is a closed loop obstruction which I cannot completely confirm but cannot exclude. 2. Extensive free intraperitoneal air and subcutaneous gas likely related the patient's reported recent surgery. There is a preliminary report by [facility]. .
[2016-09-12 08:00] VITALS: BP 111/65; PULSE 72; PULSE 73; RESP 16; TEMP 97.7; O2SAT 99
--- NOTE | 2016-09-12 08:00 | NUR ---
UPDATE/BEGINNING OF SHIFT PT IS A&0X3, DENIES ANY PAIN AT THIS TIME. DR VIRAMONTES AND JOSE LOYD AT BEDSIDE ASSESSING AND SPEAKING TO PT AND .
--- NOTE | 2016-09-12 08:01 | CONSPD ---
Consultation Info Date DATE: 09/12/16 TIME: 07:51 Date of Consultation: Sep 12, 2016 Attending Physician: Oriana Reason for Consultation: possible SBO HPI - Adult Date DATE: 09/12/16 TIME: 07:51 General History of Present Illness Per Dr. Zayas Past Medical History Past Medical History Patient's Medical History: (1) UTI (urinary tract infection) (2) Pyloric channel ulcer Surgical History Patient's Surgical History: 09-08-2016 Roboic Sacrocolpopexy with mesh - [place] 05-27-2012 EGD - normal - [place] 01-23-2012 EGD - pyloric channel ulcer - [place] 11-17-2010 C-scope - diverticulosis - [place] 2005 - breast lumpectomy - [place] 2004 [facility] [place] 1988 Current Medications Home Meds Active Scripts Hydrocodone/Acetaminophen ([place] 5-325 Tablet) 5-325 Tablet, 1-2 TAB PO Q4H Y for PAIN, #30 TAB Prov:KINGA ROTHMAN MD 09/09/16 Reported Medications Biotin (Biotin) 1,000 Mcg Tab.chew, 1 TAB PO DAILY 09/08/16 Estrogens,Conjugated (Premarin) 1.25 Mg Tablet, 0.5 TAB PO DAILY 09/08/16 Cyclobenzaprine HCl (Cyclobenzaprine HCl) 10 Mg Tablet, 1 TAB PO HS 09/07/16 Polyethylene Glycol 3350 (Miralax) 17 Gm Powd.pack, 17 G PO DAILY, BOTTLE Take 17 Grams (1 capful), by mouth, once a day. 09/07/16 [place]-3 Fatty Acids (Fish Oil) 500 Mg Capsule, 500 MG PO BID 01/23/12 Cholecalciferol (Vitamin D3) 1,000 Unit Tablet, 1000 UNIT PO QID 01/23/12 Allergies: Coded Allergies: latex (Verified Allergy, Intermediate, RASH, 09/08/16) rash on hands from gloves Sulfa (Sulfonamide Antibiotics) (Verified Allergy, Unknown, YEAST, 09/08/16 ) Family History Family History: father - CAD, lung disease mother - DM, lung disease M-grandfather - brain cancer Social History Smoking Status: Never smoker Does patient use chewing tobac: No Second Hand Exposure: No Substance Use Type: does not use Alcohol Intake: occasionally Current Occupational Status: employed Advance Directives: No DPOA for Healthcare Only GS Review of Systems Ear, Nose, and Throat REPORTS vision problems (wears glasses) Gastrointestional REPORTS constipation, REPORTS other (see HPI) 10-point Review of Systems otherwise negative except HPI GS Physical Exam Vital Signs Date Time Temp Pulse Resp B/P Pulse Ox O2 Delivery O2 Flow Rate FiO2 09/12/16 06:16 97.6 78 18 127/69 99 Room Air Height (Feet): 5 Height (Inches): 4.00 Weight (Kilograms): 75.000 BMI 28.4 Laboratory Laboratory Tests 09/12/16 03:22 Laboratory Tests 09/12/16 03:22 CHAD BURGOS APRN Sep 12, 2016 07:56
[2016-09-12] MEDS: 1/2 NS w/ KCL 20mEq 1,000 ML IV SCH ×2 (08:31→16:23)
--- NOTE | 2016-09-12 11:00 | HPF ---
CHIEF COMPLAINT Left flank pain. HPI The patient is 56-year-old female who was brought to [facility] ED early this morning or late last night with chief complaint of a 1-2 day history of acute onset of low back pain and low flank pain. The patient was here at [facility] on Sunday and dismissed to home on Sunday, the following day, after she underwent a laparoscopic sacrocolpopexy for bladder issues. She did well after surgery. She went home and lay flat on her bed as she was instructed to do and then slowly she started having left lower back pain and left flank pain. She noticed some diaphoresis; however, no nausea or vomiting and no fever or chills. She was taking some O'Brien at home. That helped a little bit but would only last for two hours. The pain was becoming so unbearable she had to come to the emergency room for further evaluation and recommendation. In the emergency room patient had a renal CT done that showed a closed loop small bowel obstruction and possible mesenteric ischemia although patient's symptoms are not consistent with mesenteric ischemia. PAST MEDICAL HISTORY 1. Urinary tract infection. 2. Pyelonephritis. PAST SURGICAL HISTORY 1. Tonsillectomy. 2. Hysterectomy. 3. Laparoscopic sacrocolpopexy recently. ALLERGIES Latex and sulfa. REVIEW OF SYSTEMS As per HPI. She denies any chest pain. No cough. No hemoptysis. No hematochezia. No melena. No hemoptysis. No palpitation. No nausea. No vomiting. FAMILY HISTORY Not relevant to this particular admission. CURRENT MEDICATIONS 1. Biotin 1,000 mcg one tablet daily. 2. Vitamin D3 1,000 IU q.i.d. 3. Cyclobenzaprine 10 mg one tablet at bedtime. 4. Premarin 0.5 mg one tablet daily. 5. O'Brien 5/325 mg 1-2 tablets q.4-6h. p.r.n. 6. [place]-3 Fish Oil 500 mg one tablet p.o. b.i.d. 7. MiraLAX 17 g daily. PHYSICAL EXAMINATION VITAL SIGNS: Blood pressure 127/69 with pulse of 78, temperature 97.6, respiration 18, O2 sat 99% on room air. GENERAL: She looks overall very comfortable at this time. She appears to be in no acute respiratory distress. NECK: Supple. LUNGS: Clear to auscultation bilaterally. CARDIOVASCULAR: Regular rate and rhythm. ABDOMEN: Soft. Patient is mildly tender in the epigastric region from the site of recent surgery. : She does have left flank tenderness on examination. EXTREMITIES: No edema. NEURO EXAM: Grossly intact. LABORATORY CBC: White blood count 11,600, hemoglobin 13.2, platelet count of 318,000. Chemistry: Creatinine 0.6, BUN 7.0, potassium 4.0, AST 38, glucose 131, lipase 29. UA: 2+ blood, 2-5 RBC, 1-3 WBC, bacteria - trace, culture not indicated. ASSESSMENT 1. Acute left flank pain and tenderness. 2. Closed loop small bowel obstruction. 3. Possible mesenteric ischemia. Patient's clinical symptoms are not consistent with this particular differential diagnosis. 4. Microscopic hematuria. 5. Recent laparoscopic sacrocolpopexy. PLAN Surgical consultation to Dr. Zayas is initiated. Claudia Patrick APRN ( Surgery) is currently evaluating the patient. Patient is n.p.o. Pain management with IV med. Await radiology read on the renal CT. Follow with KUB in the morning and electrolytes and CBC. MTDD
[2016-09-12 13:39] VITALS: BP 105/64; PULSE 83; RESP 16; TEMP 97.4; O2SAT 97
[2016-09-12 16:00] VITALS: PULSE 71
--- NOTE | 2016-09-12 17:45 | NUR ---
UPDATE/SUMMARY DR WONG AND JOSE LOYD SPEAKING TO PT AND AT THIS TIME. PT WILL CONTINUE TO BE NPO AND THEY WILL BE DOING X-RAYS TOMORROW TO CHECK FOR OBSTRUCTION. PT HAS BEEN COOPERATIVE TODAY, SHE HAS COMPLAINED OF PAIN TO L FLANK ,BUT IS MANAGEABLE WITH DILAUDID IV 1MG, PT HAS HAD IT TWICE TODAY. PT IS UP AD ARMIN, AND IS SITTING IN RECLINER AT THIS TIME.
[2016-09-12 19:18] VITALS: BP 109/64; PULSE 80; RESP 16; TEMP 98.2; O2SAT 97
--- NOTE | 2016-09-12 20:51 | CONSF ---
DATE OF CONSULTATION 09/12/2016 FINDINGS Mrs. Atkins is a 56-year-old female whom I was asked to see today as a new patient as a result of a possible bowel obstruction. The patient did undergo a robotic-assisted laparoscopic sacrocolpopexy on 09/08/2016 secondary to symptomatic stage III post-hysterectomy vaginal prolapse. Her procedure went without incident and she was subsequently dismissed to home. The patient was readmitted to our facility earlier today. Patient states that at home she began to develop increasing abdominal discomfort. She described this pain as being within her left flank region and in her lower back. She denied any component of nausea or vomiting in association with the discomfort. She states she did have a normal bowel movement on Sunday while at home. Patient this evening upon entering her room did not appear to be in acute distress. States she has not had any element of nausea or vomiting throughout today. She states she has passed some flatus but has not had additional bowel movement. EXAM VITAL SIGNS: Afebrile, normotensive. Current vitals include temperature 97.4, pulse 71, respirations 16, blood pressure 105/64, SAO2 97% on room air. HEENT: Normocephalic. Pupils are equally round and react to light and accommodation. CHEST: Clear to auscultation bilaterally. HEART: Regular rate and rhythm. Normal S1 and S2 without gallops, murmurs or clicks. ABDOMEN: Palpation of the abdomen did reveal some incisional tenderness but the patient was without any evidence for involuntary guarding or rebound. I did not appreciate evidence for hepatomegaly or other abnormal masses. LABORATORY/RADIOGRAPHIC EVALUATION The patient had a CBC upon admission today and her white count was 11.6. Hemoglobin was 13.2. CMP obtained and found to be without marked abnormalities. Radiographically she did undergo a renal CT scan earlier today. Renal CT scan revealed evidence for high-grade partial or complete small bowel obstruction felt to be perhaps from an adhesion or internal hernia. I did review the CT scan personally. Her CT scanogram did not reveal evidence for marked small bowel distention. One can see some abnormal appearance of the mesentery in the right lower quadrant of her abdomen. It does appear from the operative note that the retroperitoneum was entered on the right side to enter the presacral space. Personally, I did not see marked proximal small bowel distention although agree that there was some component of small bowel distention and some changes within the mesentery within the right lower quadrant of her abdomen. ASSESSMENT 56-year-old female status post sacrocolpopexy development of postoperative abdominal discomfort and abnormal CT scan. Patient without acute surgical abdomen at this time. PLAN The patient does not have an acute surgical abdomen upon physical examination. Her abdomen is fairly soft and nontender. I do not feel that we are dealing with that of a complete small bowel obstruction. Tomorrow will repeat KUB and upright. Will repeat lab work tomorrow morning. Tomorrow may proceed with Gastrografin small bowel follow-through for further evaluation. Will attempt to notify her gynecologic physician this evening to make sure that he is aware of the patient's readmission. JULIO
--- NOTE | 2016-09-12 23:26 | NUR ---
Chart Check 24 hour chart check completed
[2016-09-13 00:01] VITALS: BP 114/66; PULSE 74; RESP 16; TEMP 97.2; O2SAT 98
[2016-09-13] MEDS: 1/2 NS w/ KCL 20mEq 1,000 ML IV SCH ×3 (00:56→16:43)
[2016-09-13 05:54] LABS: BASOPHILS # (AUTO) 0.1 T/MM3 (0-0.2); BASOPHILS % (AUTO) 0.5 % (0-2); EOSINOPHILS # (AUTO) 0.8 T/MM3 (0-0.5); EOSINOPHILS % (AUTO) 7.3 % (0-4); HCT - HEMATOCRIT 38.4 % (36-46); HGB - HEMOGLOBIN 12.3 GM/DL (12-16); IMMATURE GRANULOCYTE # (AUTO) 0.02 T/MM3 (0.00-0.03); IMMATURE GRANULOCYTE % (AUTO) 0.2 % (0.0-0.5); LYMPHOCYTES # (AUTO) 2.5 T/MM3 (1-4.8); LYMPHOCYTES % (AUTO) 24.5 % (23-45); MEAN CORPUSCULAR HGB 29.6 UUG (26-34); MEAN CORPUSCULAR VOLUME 92.3 UM3 (80-100); MEAN PLATELET VOLUME 9.5 UM3 (9.4-12.4); MONOCYTES # (AUTO) 0.8 T/MM3 (0-0.8); MONOCYTES % (AUTO) 7.6 % (0-9.0); NEUTROPHILS #(AUTO)-ABSOLUTE 6.2 T/MM3 (1.8-7.7); NEUTROPHILS % (AUTO) 59.9 % (33-66); RED BLOOD COUNT 4.16 M/MM3 (4.00-5.20); WBC - WHITE BLOOD COUNT 10.4 T/MM3 (4.5-11.0)
[2016-09-13 06:13] LABS: ANION GAP 6 MEQ/L (5-15); BUN/CREATININE RATIO 13 RATIO (6-26); CALCIUM 8.6 MG/DL (8.4-10.2); CHLORIDE 106 MEQ/L (98-107); CO2 - CARBON DIOXIDE 27 MEQ/L (22-30); CREATININE 0.6 MG/DL (0.7-1.2); GLOMERULAR FILTRATION RATE 104; GLUCOSE 104 MG/DL (65-110); POTASSIUM 4.3 MEQ/L (3.6-5); SODIUM 139 MEQ/L (134-144)
--- NOTE | 2016-09-13 06:23 | NUR ---
SUMMARY PATIENT DENIED NEED FOR PAIN AND NAUSEA MEDS THROUGHOUT NIGHT. HAS BEEN UP WITHOUT HELP. ALERT AND ORIENTED, V.S.S. HAVING GOOD URINE OUTPUT AND 3-4 BM'S THIS SHIFT. WAS NPO SINCE MIDNIGHT. HAD CLEAR LIQUID CAPABILITIES FROM ABOUT 1930 UNTIL MIDNIGHT AND TOOK IN 740CC PO.
--- NOTE | 2016-09-13 07:22 | NUR ---
UPDATE PT IS AWAKE AND A&OX3, THIS MORNING, STATED HER PAIN IS INTERMITTENT, IT HURTS WHEN SHE IS ABOUT TO HAVE A BM. PT HAS HAD 5 BM IN THE LAST 24HRS AND HAD X-RAY DONE THIS AM. CONTINUES TO BE NPO UNTIL RESULTS ARE BACK.WILL CONTINUE TO MONITOR.
[2016-09-13 08:00] VITALS: BP 119/68; PULSE 80; RESP 16; TEMP 99.1; O2SAT 100
--- NOTE | 2016-09-13 08:31 | DI ---
Indication: ITS.REASON: f/u SBO seen on CT PROCEDURE: KUB W/UPRIGHT: Encounter: Initial Comparison: Renal CT dated September 12, 2016 Findings: Small bowel loops with air-fluid levels are again seen. Free intraperitoneal air is redemonstrated beneath both hemidiaphragms. There is scattered colonic gas present. Small bowel dilatation up to 3.6 cm. Gas is present distally to the level of the rectum. Impression: Findings most consistent with a partial small bowel obstruction. .
--- NOTE | 2016-09-13 09:10 | PNSURG ---
Subjective DATE: 09/13/16 TIME: 08:54 Interval History She had several BM's last evening and was started on clear liquids, with NPO after midnight. Denies nausea, abd pain currently. Denies abd pain with palpation. KUB upright earlier still indicates possible partial SBO. She states she "felt something give" in the RUQ followed by another large BM, after the KUB this am. Will repeat KUB, she might not need SBFT. Objective Vital Signs Date Time Temp Pulse Resp B/P Pulse Ox O2 Delivery O2 Flow Rate FiO2 09/13/16 08:00 99.1 80 16 119/68 100 Room Air Height (Feet): 5 Height (Inches): 4.00 Weight (Kilograms): 78.000 BMI 28.4 General Appearance: Alert, Awake, Orientated x 3 Respiratory: FOUND: clear all bee Cardiac: FOUND: regular rate, regular rhythm Abdominal Brief: FOUND: BS normo active x4, soft, NOT FOUND: tender Incision: FOUND: Clean, Dry, Intact, open to air, NOT FOUND: erythema Laboratory Laboratory Tests 09/12/16 03:22 09/13/16 04:58 Laboratory Tests 09/12/16 03:22 09/13/16 04:58 Imaging - KUB upright Findings: Small bowel loops with air-fluid levels are again seen. Free intraperitoneal air is redemonstrated beneath both hemidiaphragms. There is scattered colonic gas present. Small bowel dilatation up to 3.6 cm. Gas is present distally to the level of the rectum. Impression: Findings most consistent with a partial small bowel obstruction. GS Assessment & Plan Problems: (1) Small bowel obstruction Status: Acute Assessment She had several BM's last evening and was started on clear liquids, with NPO after midnight. Denies nausea, abd pain currently. Denies abd pain with palpation. KUB upright earlier still indicates possible partial SBO. She states she "felt something give" in the RUQ followed by another large BM, after the KUB this am. Will repeat KUB, she might not need SBFT. ADDENDUM: Repeat KUB upright shows some improvement, although still indicates possible small bowel obstruction. Will allow clear liquids today, NPO after midnight. DVT Prophylaxis: SCD'S Code Status Full Code Hospital Course Summary Disclaimer The visit summary below is not to be considered part of the above Progress Note. CHAD BURGOS [employer] Sep 13, 2016 08:58
--- NOTE | 2016-09-13 10:14 | DI ---
Indication: ITS.REASON: pt condition improved after she "felt something give" RUQ PROCEDURE: KUB W/UPRIGHT: Encounter: Initial Comparison: September 13, 2016 at 0618 Findings: Free air is again noted. Small bowel dilatation has slightly improved from the exam earlier this morning. Scattered colonic gas is present distally to the level of the rectum. Mildly dilated small bowel measuring up to 3.7 cm in the left midabdomen. Impression: Slight improvement in the partial small bowel obstruction. .
--- NOTE | 2016-09-13 10:46 | NUR ---
ZOË CM VISITED PT AND EXPLAINED ROLE. CM PROVIDED CONTACT INFORMATION. PT PLANS TO RETURN HOME POST HOSPITAL STAY. PT DENIES NEEDS. PT STATES HER CHILDREN LIVE CLOSE AND CAN HELP HE WITH ANY NEEDS. PT IS AWARE TO CONTACT CMM IF NEEDS ARISE.
[2016-09-13 16:00] VITALS: BP 131/73; PULSE 89; RESP 16; TEMP 99.2; O2SAT 97
--- NOTE | 2016-09-13 16:02 | PNF ---
DATE 09/13/2016 HISTORY The patient did have some bowel movements yesterday evening. She had more bowel movements this morning. She is not having abdominal pain this morning. She has no nausea or vomiting. PHYSICAL EXAMINATION VITAL SIGNS: Temperature is 99.1 degrees oral. Pulse is 80. Respiratory rate is 16. Blood pressure is 119/68. Oxygen saturation is 100% on room air. ABDOMEN: The abdomen was soft and nontender. There is very little abdominal distention. The patient does have recent laparoscopy incision scars from her operation on 09/08/2016. LABORATORY DATA White blood cell count is 10,400. Hemoglobin is 12.3. Hematocrit is 38.4. Electrolytes are normal. IMAGING DATA The patient did have KUB and upright abdominal x-rays this morning. There is some free intraperitoneal air following the recent operation. The patient does have some dilated loops of small bowel and some small bowel air-fluid levels. There is some scattered gas throughout the colon. The gas in the colon does go all the way down to level of the rectum. IMPRESSION Postop ileus following robotic laparoscopic sacrocolpopexy on 09/08/2016. RECOMMENDATION 1. Continue nonoperative treatment of postoperative ileus with bowel rest, intravenous fluid administration, ambulation of the patient and avoidance of narcotic analgesics. 2. Recheck KUB and upright abdominal x-rays again tomorrow morning. [facility]
--- NOTE | 2016-09-13 17:58 | NUR ---
SUMMARY UPDATE PT HAS HAD MULTIPLE SMALL SOFT BOWEL MOVEMENTS TODAY, X-RAY THIS MORNING SHOWED AN IMPROVEMENT ON THE SMALL BOWEL OBSTRUCTION. PT HAS NOT COMPLAINED OF PAIN TODAY AND WALKED IN THE HALLWAYS TWICE TODAY. SHE WAS SWITCHED TO A CLEAR LIQUID DIET DURING THE AFTERNOON AND HAS RECENTLY BEEN MOVED TO A FULL LIQUID DIET. HOWEVER, PT WILL BE NPO AFTER MIDNIGHT. TOMORROW SHE WILL GETTING ANOTHER KUB DONE FOR FURTHER EVALUATION. PTS IS CURRENTLY AT BEDSIDE. WILL CONTINUE TO MONITOR.
--- NOTE | 2016-09-13 18:38 | PNF ---
DATE September 13, 2016 SUBJECTIVE The patient was lying in bed when I saw her this evening. Her was at bedside. She is feeling much better. She is able to tolerate clear liquids without difficulty at this time. She denies any left flank pain at this time. PHYSICAL EXAM GENERAL: The patient looks comfortable. She is actually cheerful. VITAL SIGNS: Blood pressure 131/73, pulse 89, respirations 16, temperature 99.2, Soa2 97% on room air. HEENT: Unremarkable. NECK: Supple. CHEST: Lungs are clear. CARDIOVASCULAR: Regular rate and rhythm. ABDOMEN: Soft. No tenderness. Bowel sounds are normoactive. GENITOURINARY: No flank tenderness today at all. EXTREMITIES: No edema. SKIN: No rash. NEUROLOGIC: Grossly intact. LABORATORY (today) BMP is entirely normal. Creatinine 0.6. CBC is entirely normal including WBC 10.4. ASSESSMENT Partial small bowel obstruction post recent laparoscopic sacrocolpopexy done by Dr. Griffin on 09/08/2016. Clinically, the patient is improving. Radiographically, KUB shows some mild improvement this morning. PLAN Continue as per General Surgery team. The patient doesn't have any other medical problems at this time. I am going to be out of town until Sunday morning, September 18, 2016. I am going to check out to Dr. Zayas's surgical group for dismissal. If any medical problems arise they can consult the hospitalist group. JULIO
[2016-09-13 19:35] VITALS: PULSE 80; RESP 16; O2SAT 98
[2016-09-14 00:12] VITALS: BP 118/70; PULSE 92; RESP 16; TEMP 97.7; O2SAT 96
[2016-09-14] MEDS: 1/2 NS w/ KCL 20mEq 1,000 ML IV SCH ×3 (00:18→16:37)
--- NOTE | 2016-09-14 05:10 | NUR ---
SHIFT SUMMARY PATIENT IS ALERT AND ORIENTED X3 THIS SHIFT. VITAL SIGNS STABLE ON ROOM AIR. PATIENT IS UP AT [facility]. PATIENT WAS MADE NPO AT MIDNIGHT FOR KUB STUDY TO BE DONE THIS AM. PATIENT HAS HAD ADEQUATE URINE OUTPUT, AND THREE MODERATE SOFT BMS THIS SHIFT. PATIENT HAS SLEPT OFF AND ON, PERIODICALLY WALKING IN THE HALLWAY. WILL CONTINUE TO MONITOR.
[2016-09-14 07:31] VITALS: BP 112/63; PULSE 83; RESP 16; TEMP 96.4; O2SAT 99
[2016-09-14 07:35] VITALS: PULSE 83; RESP 16
--- NOTE | 2016-09-14 08:39 | DI ---
Indication: ITS.REASON: postop ileus PROCEDURE: KUB W/UPRIGHT: Encounter: Initial Comparison: September 13, 2016 Findings: Interval slight decrease in free intraperitoneal air. Gas is seen in small and large bowel to the level of the rectum. Small bowel dilatation has not significantly changed overall. Impression: No significant change in the presumed postoperative ileus. .
--- NOTE | 2016-09-14 08:58 | PNSURG ---
Subjective DATE: 09/14/16 TIME: 08:47 Interval History She did well with full liquids last night. No nausea or abd pain. She has had several small to moderate soft formed stools. CBC normal yesterday, not repeated today. KUB today reports no significant change in "ileus pattern", although having several stools the ileus seems to be resolved. Will get a small bowel series. If she continues to do well, will discharge today. Objective Vital Signs Date Time Temp Pulse Resp B/P Pulse Ox O2 Delivery O2 Flow Rate FiO2 09/14/16 07:35 83 16 09/14/16 07:31 96.4 112/63 99 Room Air Height (Feet): 5 Height (Inches): 4.00 Weight (Kilograms): 74.500 BMI 28.4 General Appearance: Alert, Awake, Orientated x 3 Respiratory: FOUND: clear all bee Cardiac: FOUND: regular rate, regular rhythm Abdominal Brief: FOUND: BS normo active x4, soft, NOT FOUND: distended, tender Laboratory Laboratory Tests 09/12/16 03:22 09/13/16 04:58 Laboratory Tests 09/12/16 03:22 09/13/16 04:58 GS Assessment & Plan Problems: (1) Small bowel obstruction Status: Resolved (2) Postoperative ileus Status: Resolved Assessment She did well with full liquids last night. No nausea or abd pain. She has had several small to moderate soft formed stools. CBC normal yesterday, not repeated today. KUB today reports no significant change in "ileus pattern", although having several stools the ileus seems to be resolved. Will get small bowel series to definitively rule out SBO. If she continues to do well, will discharge today. DVT Prophylaxis: SCD'S Code Status Full Code Hospital Course Summary Disclaimer Admission note: ASSESSMENT 1. Acute left flank pain and tenderness. 2. Closed loop small bowel obstruction. 3. Possible mesenteric ischemia. Patient's clinical symptoms are not consistent with this particular differential diagnosis. 4. Microscopic hematuria. 5. Recent laparoscopic sacrocolpopexy. PLAN Surgical consultation to Dr. Zayas is initiated. Claudia Patrick APRN ( Surgery) is currently evaluating the patient. Patient is n.p.o. Pain management with IV med. Await radiology read on the renal CT. Follow with KUB in the morning and electrolytes and CBC. Surgery consults: ASSESSMENT 56-year-old female status post sacrocolpopexy development of postoperative abdominal discomfort and abnormal CT scan. Patient without acute surgical abdomen at this time. PLAN The patient does not have an acute surgical abdomen upon physical examination. Her abdomen is fairly soft and nontender. I do not feel that we are dealing with that of a complete small bowel obstruction. Tomorrow will repeat KUB and upright. Will repeat lab work tomorrow morning. Tomorrow may proceed with Gastrografin small bowel follow-through for further evaluation. Will attempt to notify her gynecologic physician this evening to make sure that he is aware of the patient's readmission. 09-13 WBC normal. She had several BM's last evening and was started on clear liquids, with NPO after midnight. Denies nausea, abd pain currently. Denies abd pain with palpation. KUB upright earlier still indicates possible partial SBO. She states she "felt something give" in the RUQ followed by another large BM, after the KUB this am. Repeat KUB basically unchanged, will start full liquids. 09-14-16 She did well with full liquids last night. No nausea or abd pain. She has had several small to moderate soft formed stools. CBC normal yesterday, not repeated today. KUB today reports no significant change in "ileus lpattern", although having several stools the ileus seems to be resolved. Will get small bowel series to definitively rule out SBO. If she continues to do well, will discharge today. CLAUDIA PATRICK APRN Sep 14, 2016 08:51 CLAUDIA PATRICK APRN Sep 14, 2016 08:51
[2016-09-14] MEDS ORDERED: DIATRIZOATE MEGLUMINE/SOD. (66%/10%) 120ml SOLN ONE (09:28)
--- NOTE | 2016-09-14 11:46 | NUR ---
ZOË CAMP IN TO VISIT PATIENT, SHE WAS NOT PRESENT IN ROOM. NO FAMILY IS PRESENT.
--- NOTE | 2016-09-14 12:59 | DI ---
Indication: ITS.REASON: rule out SBO PROCEDURE: SMALL BOWEL SERIES: Encounter: Initial Comparison: KUB from today Findings: Water-soluble oral contrast was administered followed by serial abdominal radiographs. Images show contrast progression through mildly dilated small bowel in the left abdomen measuring up to 4 cm in diameter reaching the colon by one hour after administration. The distal small bowel loops are of normal caliber indicating a relative transition from dilated proximal to nondilated distal small bowel but no evidence of high-grade obstruction. Impression: Normal intestinal transit time excluding a high-grade or complete obstruction. .
[2016-09-14 15:50] VITALS: BP 113/65; PULSE 83; RESP 16; TEMP 97.3; O2SAT 100
--- NOTE | 2016-09-14 18:28 | NUR ---
STATUS PT A/O X3. UP AD ARMIN. PT HAS RATED PAIN AT A 1-2/10. PT ABLE TO PASS STOOL. URINATING ADEQUATELY. TOLERATING REGULAR DIET WELL. PT HAS AMBULATED IN HALLS. PT HOPING TO GO HOME TODAY. SITTING ON EDGE OF BED. IN ROOM. WILL CONTINUE TO MONITOR.
--- NOTE | 2016-09-14 19:42 | PNF ---
DATE OF SERVICE 09/14/2016 FINDINGS Mrs. Atkins this morning was in good spirits. Upon questioning, she denies any element of abdominal pain. She has been having bowel movements. EXAM VITAL SIGNS: Afebrile, normotensive. Please refer to EMR. Last recorded vitals include temperature 96.4, pulse 83, respirations 68, blood pressure 112/63, SAO2 99% on room air. CHEST: Clear to auscultation bilaterally. HEART: Regular rate and rhythm. Normal S1 and S2 without gallops, murmurs or clicks. ABDOMEN: Palpation of the abdomen this morning revealed it be soft and completely nontender. LABORATORY/RADIOGRAPHIC EVALUATION Repeat lab was not obtained today. The patient has not had any element of leukocytosis. Radiographically, she did have a KUB and upright obtained today. She still has some "stair-stepping" appearance of her small bowel on plain film. One, however, can still see some air within her colon distally. Radiographically she appears "worse than she does clinically." ASSESSMENT 56-year-old female status post robotic-assisted laparoscopic sacrocolpopexy, postop development of partial small-bowel obstruction/ileus. Patient currently doing well clinically. PLAN At first I had thought about just advancing the patient's diet and sending her home this afternoon. Given her abnormal KUB appearance this morning, will go ahead and obtain a Gastrografin small bowel follow-through to document that the contrast does progress through her GI tract without difficulty. The patient still had a fair amount of free air that could be seen radiographically. This in my opinion is somewhat unusual given the fact that she had a laparoscopic case done approximately a week ago and one would think that the CO2 would be reabsorbed at this time. Perhaps she did have some trapping of the air in her retroperitoneum resulting in this appearance of free air up by the diaphragm. Nonetheless, from a clinical standpoint she does not have a surgical abdomen and I do not feel that this free air noted radiographically is of clinical significance. JULIO
--- NOTE | 2016-09-14 19:46 | GSDISC ---
General Date Date DATE: 09/14/16 TIME: 19:39 Attending Physician Matt Zayas MD,Facs,Cws Admitting Physician Matt Zayas MD,Facs,Cws Consulting Physician Matt Zayas MD,Facs,Cws Discharge Diagnosis: (1) Postoperative ileus Status: Resolved (2) Small bowel obstruction Status: Resolved Laboratory Laboratory Item Value Date Time White Blood Count 10.4 T/MM3 09/13/16 0458 White Blood Count 11.6 T/MM3 H 09/12/16 0322 Hemoglobin 13.2 GM/DL 09/12/16 0322 Hemoglobin 12.3 GM/DL 09/13/16 0458 Platelet Count 318 T/MM3 09/12/16 0322 Platelet Count 338 T/MM3 09/13/16 0458 Sodium Level 141 MEQ/L 09/12/16 0322 Potassium Level 4.0 MEQ/L 09/12/16 0322 Chloride Level 100 MEQ/L 09/12/16 0322 Carbon Dioxide Level 28 MEQ/L 09/12/16 0322 Blood Urea Nitrogen 7.0 MG/DL 09/12/16 0322 Creatinine 0.6 MG/DL L 09/12/16 0322 Glucose Level 131 MG/DL H 09/12/16 0322 Calcium Level 9.1 MG/DL 09/12/16 0322 Total Bilirubin 0.70 MG/DL 09/12/16 0322 Aspartate Amino Transf (AST/SGOT) 38 U/L H 09/12/16 0322 Alanine Aminotransferase (ALT/SGPT) 47 U/L 09/12/16 0322 Lipase 29 U/L 09/12/16 0322 Sodium Level 139 MEQ/L 09/13/16 0458 Potassium Level 4.3 MEQ/L 09/13/16 0458 Blood Urea Nitrogen 8.0 MG/DL 09/13/16 0458 Creatinine 0.6 MG/DL L 09/13/16 0458 Glucose Level 104 MG/DL 09/13/16 0458 Radiology 09-12-[address] : Findings: The lung bases are clear. There is a large amount of free intraperitoneal air and air in the subcutaneous tissues of the abdomen and left rectus abdominis musculature. Gas is present within the nondependent portion of the bladder. Small amount of free pelvic fluid. Uterus is surgically absent. The unenhanced contours of the liver, gallbladder, spleen, pancreas and adrenal glands are normal. Right kidney appears normal. Left kidney appears normal. No renal or ureteral stones identified. Some borderline dilated fluid-filled small bowel loops in the left and central abdomen with an area of transition from larger caliber to small caliber distal small bowel seen on axial images 59-65. There is associated mesenteric edema. Bone windows show no acute findings. Impression: 1. Evidence of a high-grade partial or complete small bowel obstruction which could be due to adhesion or internal hernia in the right central abdomen. Surgical consultation is recommended. The preliminary report suggest that this is a closed loop obstruction which I cannot completely confirm but cannot exclude. 2. Extensive free intraperitoneal air and subcutaneous gas likely related the patient's reported recent surgery. 09-13 KUB upright: Findings: Small bowel loops with air-fluid levels are again seen. Free intraperitoneal air is redemonstrated beneath both hemidiaphragms. There is scattered colonic gas present. Small bowel dilatation up to 3.6 cm. Gas is present distally to the level of the rectum. Impression: Findings most consistent with a partial small bowel obstruction. 09-14 KUB upright: Impression: No significant change in the presumed postoperative ileus. . Addendum: Impression should read: No significant change in the overall bowel gas pattern which was consistent with at least a partial small bowel obstruction on recent CT. There has been no interval surgical intervention since the CT on September 12, 2016. Findings could represent a partial small bowel obstruction or postoperative ileus. Small bowel follow-through may be helpful for further evaluation. 09-14 Small Bowel Series: Findings: Water-soluble oral contrast was administered followed by serial abdominal radiographs. Images show contrast progression through mildly dilated small bowel in the left abdomen measuring up to 4 cm in diameter reaching the colon by one hour after administration. The distal small bowel loops are of normal caliber indicating a relative transition from dilated proximal to nondilated distal small bowel but no evidence of high-grade obstruction. Impression: Normal intestinal transit time excluding a high-grade or complete obstruction Hospital Course 09-12-2016 Admission note: ASSESSMENT 1. Acute left flank pain and tenderness. 2. Closed loop small bowel obstruction. 3. Possible mesenteric ischemia. Patient's clinical symptoms are not consistent with this particular differential diagnosis. 4. Microscopic hematuria. 5. Recent laparoscopic sacrocolpopexy. PLAN Surgical consultation to Dr. Zayas is initiated. Chad Burgos APRN ( Surgery) is currently evaluating the patient. Patient is n.p.o. Pain management with IV med. Await radiology read on the renal CT. Follow with KUB in the morning and electrolytes and CBC. Surgery consults: ASSESSMENT 56-year-old female status post sacrocolpopexy development of postoperative abdominal discomfort and abnormal CT scan. Patient without acute surgical abdomen at this time. PLAN The patient does not have an acute surgical abdomen upon physical examination. Her abdomen is fairly soft and nontender. I do not feel that we are dealing with that of a complete small bowel obstruction. Tomorrow will repeat KUB and upright. Will repeat lab work tomorrow morning. Tomorrow may proceed with Gastrografin small bowel follow-through for further evaluation. Will attempt to notify her gynecologic physician this evening to make sure that he is aware of the patient's readmission. 09-13 WBC normal. She had several BM's last evening and was started on clear liquids, with NPO after midnight. Denies nausea, abd pain currently. Denies abd pain with palpation. KUB upright earlier still indicates possible partial SBO. She states she "felt something give" in the RUQ followed by another large BM, after the KUB this am. Repeat KUB basically unchanged, will start full liquids. 09-14-16 She did well with full liquids last night. No nausea or abd pain. She has had several small to moderate soft formed stools. CBC normal yesterday, not repeated today. KUB today reports no significant change in "ileus lpattern", although having several stools the ileus seems to be resolved. Will get small bowel series to definitively rule out SBO. If she continues to do well, will discharge today. SBFT was negative for obstruction. Patient was dismissed to home with instructions to notify Dr. Zayas if she had recurrence of her abd pain. Keep her previously scheduled post op appointment with Dr. Griffin. Home Meds Active Scripts Hydrocodone/Acetaminophen ([place] 5-325 Tablet) 5-325 Tablet, 1-2 TAB PO Q4H Y for PAIN, #30 TAB Prov:KINGA ROTHMAN MD 09/09/16 Reported Medications Biotin (Biotin) 1,000 Mcg Tab.chew, 1 TAB PO DAILY 09/08/16 Estrogens,Conjugated (Premarin) 1.25 Mg Tablet, 0.5 TAB PO DAILY 09/08/16 Cyclobenzaprine HCl (Cyclobenzaprine HCl) 10 Mg Tablet, 1 TAB PO HS 09/07/16 Polyethylene Glycol 3350 (Miralax) 17 Gm Powd.pack, 17 G PO DAILY, BOTTLE Take 17 Grams (1 capful), by mouth, once a day. 09/07/16 [place]-3 Fatty Acids (Fish Oil) 500 Mg Capsule, 500 MG PO BID 01/23/12 Cholecalciferol (Vitamin D3) 1,000 Unit Tablet, 1000 UNIT PO QID 01/23/12 Discharge Disposition good condition , to home. CHAD BURGOS EDUCATION AND DEVELOPMENT MANAGER Sep 14, 2016 19:43
--- NOTE | 2016-09-14 19:55 | NUR ---
DISCHARGE SUMMARY PT VITAL SIGNS ARE STABLE ON ROOM AIR, DENIES PAIN AT THIS TIME. ALL BELONGINGS ROUNDED UP BY AND PT. THIS RN WENT OVER DISCHARGE PACKET, SIGNS AND SYMPTOMS TO REPORT, MEDICATIONS TO CONTINUE, HOLD MIRALAX UNTIL STOOL BECOMES MORE FORMED. NO RESTRICTIONS ACCORDING TO DOCTORS ORDERS. PT AMBULATED TO THE FRONT ENTRANCE, IV DC'D WITH CATHETER TIP INTACT, WRIST BAND REMOVED AND SHREDDED.
--- NOTE | 2016-09-18 12:57 | NUR ---
CM CM LVM
== END 2016-09-14 19:55 | disposition home or self-care (01) | DRG 395 ==
LOC: ED 02:25 → SRG 05:26 → EDHOLD 05:26 → OBSVTOIN 09-13 12:00
PROVIDERS: ADMIT Family Medicine; ATTEND Surgery
DX: K91.3 Postprocedural intestinal obstruction (principal); R31.29 Other microscopic hematuria; Z98.890 Other specified postprocedural states
CPT/HCPCS: 36415; 80048; 80053; 81001; 83690; 85025; 96361; 96374; 96375; 99218

== ENCOUNTER → 2016-10-11 | Outpatient (CLI) | payer OTHER ==
[~2016-10-11] MED LIST changes: -IBUP-1724 PO
== END ==
LOC: WC.BC 15:07
DX: Z12.31 Encounter for screening mammogram for malignant neoplasm of breast (principal); N64.59 Other signs and symptoms in breast
CPT/HCPCS: 77063; G0202